=== PATIENT | male | born 1940 | race Caucasian/White ===

== ENCOUNTER 2018-12-22 06:34 | Day surgery (SDC) | payer MEDICARE, OTHER ==
[~2018-12-22] VITALS: Ht 175 cm; Wt 112.6 kg
[~2018-12-22 06:34] MED LIST: ALLO300 PO; AMOCLA500 PO; Aspirin EC81 MG; Daily Multivit1 EAC2 PO; Dyazide 37.5-21 EACH PO; FISH OIL 1,2001 EACH PO; GLUCOSAMINE CH1 EAC1 PO; GLUCOSAMINE CH1 EACH PO; HYDCHL25 PO; MULTI VITAMIN1 EACH PO; OMEP10ER PO; Omeprazole20 M1; PERIDEX15 ML; TAMS.4ER PO
--- NOTE | 2018-12-22 07:08 | NUR ---
Ambulatory in Day Surgery History, Chart, Medications and Allergies reviewed before start of procedure.Patient confirms NPO status and agrees with scheduled surgery. Patient reports completing Chlorhexadine shower X2 prior to admission to hospital.Surgical site prepped with 2% Chlorhexidine cloth wipe.
--- NOTE | 2018-12-22 18:06 | NUR ---
SHIFT SUMMARY PT DID WELL WITH PAIN MANAGEMENT, WORKING WITH THERAPY, STAYING UP IN THE CHAIR AND TOLERATING DIET BUT WAS NOT ABLE TO VOID SPONTANEOUSLY. STRAIGHT CATH COMPLETED.
[2018-12-23 04:18] LABS: BASOPHILS ABSOLUTE AUTO 0.02 K/mm3 (0.00-0.23); BASOPHILS PERCENT AUTO 0 % (0-2); EOSINOPHILS ABSOLUTE AUTO 0.01 K/mm3 (0.00-0.68); EOSINOPHILS PERCENT AUTO 0 % (0-6); Hematocrit 40.5 % (37.0-53.0); Hemoglobin 13.9 g/dL (13.5-17.5); IMMATURE GRAN ABSOLUTE AUTO 0.05 K/mm3 (0.00-0.10); IMMATURE GRAN PERCENT AUTO 0 % (0-1); LYMPHOCYTES ABSOLUTE AUTO 2.39 K/mm3 (0.84-5.20); LYMPHOCYTES PERCENT AUTO 21 % (21-46); MONOCYTES ABSOLUTE AUTO 0.62 K/mm3 (0.16-1.47); MONOCYTES PERCENT AUTO 6 % (4-13); Mean Corpuscular HGB 31.8 pg (26.0-34.0); Mean Corpuscular HGB Conc 34.3 g/dL (31.5-36.5); Mean Corpuscular Volume 93 fL (80-100); Mean Platelet Volume 10.3 fL (9.1-12.4); NEUTROPHILS ABSOLUTE AUTO 8.09 K/mm3 (1.96-9.15); NEUTROPHILS PERCENT AUTO 72 % (41-73); Platelet Count 180 K/mm3 (150-400); RDW Coefficient Variation 13.4 % (11.7-14.2); RDW Standard Deviation 46.1 fL (35.1-46.3); Red Blood Cell Count 4.37 M/mm3 (4.30-5.90); White Blood Cell Count 11.18 K/mm3 (4.00-11.30)
[2018-12-23 04:36] LABS: Anion Gap 8 mmol/L (6-16); Blood Urea Nitrogen 18 mg/dL (8-24); Bun/Creatinine Ratio 22.1 (12.0-20.0); CO2, Blood 28 mmol/L (21-32); Calcium, Blood 8.7 mg/dL (8.5-10.1); Chloride, Blood 100 mmol/L (98-108); Creatinine, Blood 0.82 mg/dL (0.60-1.20); Glomerular Filtration Rate >60 (60-); Glucose, Blood 127 mg/dL (70-99); Magnesium, Blood 1.8 mg/dL (1.6-2.4); Potassium, Blood 3.2 mmol/L (3.5-5.5); Sodium, Blood 136 mmol/L (136-145)
--- NOTE | 2018-12-23 07:43 | NUR ---
SUMMARY: POD [address] JACOBSON[address] VSS, AFEBRILE, ROOM AIR, HOME CPAP @ NOC, TOLERATING REG DIET, PASSING GAS. PT UP IN ROOM AND USES FWW WELL TO AMBULATE. MINIMAL PAIN WELL CONTROLLED WITH 5MG ROXICODONE PRN AND SCHEDULED MEDS. ENCOURAGE AMBULATION IN [place] THIS DAY. PT HISTORY OF URINARY RETENTION AND PROSTATE ISSUES; UNABLE TO VOID AND BLADDER SCAN RESULTS >900ML. PT STRAIGHT CATHETERIZED FOR 1050 ML DARK ERAN, PINK TINGED URINE; CONTINUE TO MONITOR.
--- NOTE | 2018-12-23 13:15 | NUR ---
PT BEEN ABLE TO VOID 150 X 2, ONCE BEFORE LUNCH AND ONCE AFTER LUNCH. BLADDER SCAN TO SHOW OVER 900 IN BLADDER. REPORT GIVEN TO Gladis WHO IS TAKING OVER CARE OF THIS PT AT THIS TIME. PT REPORTED EARLIER THAT HE WANTED TO TRY AND VOID ON OWN BEFORE HAVING TO HAVE CATHETER PLACED, DISCUSSED THIS WITH OTHER RN Thiago.
[2018-12-23] MEDS ORDERED: ASPI325EC PO (17:03)
[2018-12-23] MEDS ORDERED: OXYC5 PO (17:04)
--- NOTE | 2018-12-23 18:05 | NUR ---
SHIFT SUMMARY PT DISCHARGED HOME AT APROX 1714. PT GIVEN WRITTEN AND VERBAL DISCHARGE INSTRUCTIONS IN ADDITION TO INSTRUCTIONS ON HOW TO DRAIN/CARE FOR SALAZAR TO PLUG THAT IS TO BE REMOVED DURING HOME VISIT-PT VERBALIZED UNDERSTANDING OF THESE INSTRUCTIONS. IV REMOVED. WHEELCHAIR TO CAR.
--- NOTE | 2018-12-24 07:55 | NUR ---
12/24/18 0755 Saulo Marshall CORECTION OF LOT NUMBERS
--- NOTE | 2018-12-25 09:45 | NUR ---
followed up with patient at his home. Reports he feels bladder training has been going well and he has been feeling the urge to void without having "too much in there" Lambert removed at this time. Instructed to use urinal and keep log of time and amount. will follow up with patient throughout today and weekend if needed. R knee dressing dry but lifting on lateral 1/4 bottom. removed and noted small open area to skin reports that happened yesterday when they changed the dressing. Entire incision and immediate surrounding area cleansed with alcohol and hydrogen peroxide. Bandaides applied to open area then covered with new aquacel.
== END 2018-12-23 17:13 | disposition home or self-care (01) ==
LOC: ORSCMMR 06:34 → ORD 07:30 → SURS 11:36 → ORSCMMR 12-23 17:13 → ORD 01-05 07:30
PROVIDERS: Orthopaedic Surgery
PROC: 0SRC0J9 Replacement of Right Knee Joint with Synthetic Substitute, Cemented, Open Approach (ICD-10-PCS; principal; 2018-12-22 07:30)
DX: M17.11 Unilateral primary osteoarthritis, right knee (principal); I10 Essential (primary) hypertension; Z87.891 Personal history of nicotine dependence; Z79.899 Other long term (current) drug therapy; Z79.82 Long term (current) use of aspirin
CPT/HCPCS: 36415; 73560-RT; 80048; 83735; 85025; 86850; 86900; 86901; 88300; 97110; 97116; 97162; C1713; C1776; J0171; J0330; J0360; J0690; J0735; J1100; J1170; J1885; J2250; J2405; J2704; J2710; J2795; J3010; J7120

== ENCOUNTER 2018-12-25 18:08 | Emergency (ER) | payer MEDICARE, OTHER ==
[~2018-12-25] VITALS: Ht 177.8 cm; Wt 112.0 kg
[~2018-12-25 18:08] MED LIST changes: +ASPI325EC PO; +OXYC5 PO
[2018-12-25 19:45] LABS: Source, Urine Catheter
[2018-12-25 19:48] LABS: Bilirubin, Urine Neg (Neg); Blood, Urine 5+ (Neg); Glucose Qualitative, Urine Neg (Neg); Ketones, Urine Neg (Neg); Leukocyte Esterase, Urine Neg (Neg); Nitrite, Urine Neg (Neg); Protein, Urine Neg (Neg); Urobilinogen, Urine NORM (Normal); pH, Urine 6.5 (5.0-8.0)
[2018-12-25 20:00] LABS: Appearance, Urine Clear (Clear); Color, Urine Yellow (P-Yellow)
[2018-12-25 20:02] LABS: White Blood Cells, Urine 0-2 /hpf (0-5)
[2018-12-25 20:03] LABS: Bacteria Few /hpf; Squamous Epithelial Cells Not Seen /hpf (Few)
== END 2018-12-25 19:43 | disposition home or self-care (01) ==
LOC: ER 18:08
PROVIDERS: Emergency Medicine
DX: R33.9 Retention of urine, unspecified (principal); K21.9 Gastro-esophageal reflux disease without esophagitis; I10 Essential (primary) hypertension; Z96.651 Presence of right artificial knee joint; Z88.8 Allergy status to other drugs, medicaments and biological substances; Z79.82 Long term (current) use of aspirin; Z79.899 Other long term (current) drug therapy; Z87.891 Personal history of nicotine dependence
CPT/HCPCS: 51702; 51798; 81001; 87086; 99283-25

== ENCOUNTER 2024-07-21 11:44 | Emergency (ER) | payer MEDICARE ==
[~2024-07-21] VITALS: Ht 177.8 cm; Wt 118.8 kg
[2024-07-21 12:28] LABS: BASOPHILS ABSOLUTE AUTO 0.02 K/mm3 (0.00-0.23); BASOPHILS PERCENT AUTO 0 % (0-2); EOSINOPHILS ABSOLUTE AUTO 0.03 K/mm3 (0.00-0.68); EOSINOPHILS PERCENT AUTO 1 % (0-6); Hematocrit 38.2 % (37.0-53.0); Hemoglobin 13.3 g/dL (13.5-17.5); IMMATURE GRAN ABSOLUTE AUTO 0.01 K/mm3 (0.00-0.10); IMMATURE GRAN PERCENT AUTO 0 % (0-1); LYMPHOCYTES ABSOLUTE AUTO 0.83 K/mm3 (0.84-5.20); LYMPHOCYTES PERCENT AUTO 18 % (21-46); MONOCYTES ABSOLUTE AUTO 0.24 K/mm3 (0.16-1.47); MONOCYTES PERCENT AUTO 5 % (4-13); Mean Corpuscular HGB Conc 34.8 g/dL (31.5-36.5); Mean Corpuscular Volume 95 fL (80-100); NEUTROPHILS ABSOLUTE AUTO 3.53 K/mm3 (1.96-9.15); NEUTROPHILS PERCENT AUTO 76 % (41-73); Platelet Count 202 K/mm3 (150-400); RDW Coefficient Variation 13.6 % (11.7-14.2); RDW Standard Deviation 47.1 fL (35.1-46.3); Red Blood Cell Count 4.03 M/mm3 (4.30-5.90); White Blood Cell Count 4.66 K/mm3 (4.00-11.30)
[2024-07-21 13:10] LABS: Albumin, Blood 3.4 g/dL (3.4-5.0); Bilirubin, Total 0.8 mg/dL (0.1-1.0); Bun/Creatinine Ratio 23.5 (12.0-20.0); Calcium, Blood 8.9 mg/dL (8.5-10.1); Creatinine, Blood 0.72 mg/dL (0.60-1.20); Globulin, Blood 3.5 g/dL (2.2-4.0); Potassium, Blood 4.4 mmol/L (3.5-5.5); Total Protein, Blood 6.9 g/dL (6.4-8.2)
[2024-07-21 13:39] LABS: International Normalized Ratio 0.98; Prothrombin Time Results 10.5 Sec (9.7-11.5)
[2024-07-21] MEDS ORDERED: Furosemide 20 MG Tab PO ONE (16:10)
[2024-07-21] MEDS ORDERED: Lasix20 MG PO (16:14)
[2024-07-21 16:30] VITALS: BP 170/103
== END 2024-07-21 17:03 | disposition home or self-care (01) ==
LOC: ER 11:44
PROVIDERS: Emergency Medicine; Physician Assistant
DX: J81.1 Chronic pulmonary edema (principal); K21.9 Gastro-esophageal reflux disease without esophagitis; I10 Essential (primary) hypertension; G47.33 Obstructive sleep apnea (adult) (pediatric); Z88.1 Allergy status to other antibiotic agents; Z79.82 Long term (current) use of aspirin; Z79.891 Long term (current) use of opiate analgesic; Z87.891 Personal history of nicotine dependence
CPT/HCPCS: 71046; 71260; 80053; 83880; 84484; 85025; 85379; 85610; 85730; 93005; 93010; 99285-25; A9270; Q9967

== ENCOUNTER 2024-12-16 09:40 | Emergency (ER) | payer MEDICARE ==
[~2024-12-16] VITALS: Ht 177.8 cm; Wt 118.8 kg
[~2024-12-16 09:40] MED LIST changes: +Lasix20 MG PO
[2024-12-16 10:30] LABS: BASOPHILS ABSOLUTE AUTO 0.03 K/mm3 (0.00-0.23); BASOPHILS PERCENT AUTO 1 % (0-2); EOSINOPHILS ABSOLUTE AUTO 0.14 K/mm3 (0.00-0.68); EOSINOPHILS PERCENT AUTO 2 % (0-6); Hematocrit 36.9 % (37.0-53.0); Hemoglobin 12.7 g/dL (13.5-17.5); IMMATURE GRAN ABSOLUTE AUTO 0.01 K/mm3 (0.00-0.10); IMMATURE GRAN PERCENT AUTO 0 % (0-1); LYMPHOCYTES ABSOLUTE AUTO 0.87 K/mm3 (0.84-5.20); LYMPHOCYTES PERCENT AUTO 14 % (21-46); MONOCYTES ABSOLUTE AUTO 0.55 K/mm3 (0.16-1.47); MONOCYTES PERCENT AUTO 9 % (4-13); Mean Corpuscular HGB Conc 34.4 g/dL (31.5-36.5); Mean Corpuscular Volume 96 fL (80-100); NEUTROPHILS ABSOLUTE AUTO 4.58 K/mm3 (1.96-9.15); NEUTROPHILS PERCENT AUTO 74 % (41-73); NRBC ABSOLUTE 0.00 K/mm3 (0.00-0.02); NRBC Auto 0.0 /100 WBC (0.0-0.2); Platelet Count 227 K/mm3 (150-400); RDW Coefficient Variation 13.5 % (11.7-14.2); RDW Standard Deviation 47.8 fL (35.1-46.3)
[2024-12-16 10:57] LABS: Alanine Aminotransfer (ALT/SGP 22.0 U/L (12-78); Albumin, Blood 2.9 g/dL (3.4-5.0); Albumin/Globulin Ratio 0.8 (0.8-1.8); Anion Gap 8.0 mmol/L (3-11); Aspartate Aminotrans (AST/SGOT 26.0 U/L (12-37); Bilirubin, Total 1.2 mg/dL (0.1-1.0); Blood Urea Nitrogen 6.0 mg/dL (8-24); CO2, Blood 29.0 mmol/L (21-32); Calcium, Blood 8.6 mg/dL (8.5-10.1); Chloride, Blood 104.0 mmol/L (98-108); Creatinine, Blood 0.88 mg/dL (0.60-1.20); Globulin, Blood 3.7 g/dL (2.2-4.0); Glucose, Blood 144.0 mg/dL (70-99); Potassium, Blood 3.1 mmol/L (3.5-5.5); Sodium, Blood 138.0 mmol/L (136-145); Total Protein, Blood 6.6 g/dL (6.4-8.2)
[2024-12-16] MEDS ORDERED: CeFAZolin Sodium 2,000 MG in NS 100 ML IV ONE (14:10)
[2024-12-16] MEDS ORDERED: BUME1 PO (16:01)
[2024-12-16] MEDS ORDERED: K-Dur20 MEQ PO (16:01)
[2024-12-16] MEDS ORDERED: CEPH500 PO (16:01)
[2024-12-16 16:51] VITALS: BP 122/55
== END 2024-12-16 16:54 | disposition home or self-care (01) ==
LOC: ER 09:40
PROVIDERS: Physician Assistant
DX: I11.0 Hypertensive heart disease with heart failure (principal); I50.9 Heart failure, unspecified; L03.116 Cellulitis of left lower limb; L03.115 Cellulitis of right lower limb; K21.9 Gastro-esophageal reflux disease without esophagitis; G47.30 Sleep apnea, unspecified; Z87.891 Personal history of nicotine dependence; Z88.8 Allergy status to other drugs, medicaments and biological substances; Z79.82 Long term (current) use of aspirin; Z79.899 Other long term (current) drug therapy
CPT/HCPCS: 36415; 74177; 80053; 83605; 83735; 83880; 85025; 87040; 93005; 93010; 96365-59; 96375; 99284-25; A9270; J0690; J1938; Q9967